=== PATIENT | male | born 1950 | race Caucasian/White ===

== ENCOUNTER 2021-08-23 13:22 | Outpatient (CLI) | payer MEDICARE, OTHER, SELFPAY ==
[2021-08-23 16:35] LABS: Hematocrit 38.5 % (42.0-52.0); Hemoglobin 12.7 g/dL (14.0-18.0)
[2021-08-23 16:53] LABS: Free T4 Free Thyroxine 0.66 ng/mL (0.78-2.19)
[2021-08-23 23:28] LABS: Anion Gap 12 mmol/L (8-16); Blood Urea Nitrogen 22 mg/dL (9-20); Calcium 9.7 mg/dL (8.4-10.2); Carbon Dioxide 22 mmol/L (22-30); Chloride 106 mmol/L (98-107); Estimated Glomerular Filt Rate > 60; Glucose 131 mg/dL (65-110); Potassium 4.5 mmol/L (3.4-5.0); Sodium 140 mmol/L (137-145)
[2021-08-23 23:39] LABS: LDL Cholesterol Direct 103 mg/dL
[2021-08-23 23:59] LABS: Prostate Specific Antigen 0.4 ng/mL (< OR = 4.0); Thyroid Stimulating Hormone 0.207 uIU/mL (0.465-4.680); Total Triiodothyronine (T3) 0.97 NG/ML (0.97-1.69)
[2021-08-28 07:49] LABS: Triiodothyronine T3 Free 2.6 pg/mL (2.3-4.2)
[2021-08-28 14:32] LABS: Thyroid Stimulating Immunoglob <89 % baseline (<140)
== END 2021-08-23 13:23 | disposition home or self-care (01) ==
PROVIDERS: Visit Provider Internal Medicine Endocrinology, Diabetes & Metabolism
DX: E11.9 Type 2 diabetes mellitus without complications (principal); E05.90 Thyrotoxicosis, unspecified without thyrotoxic crisis or storm; E04.2 Nontoxic multinodular goiter; Z12.5 Encounter for screening for malignant neoplasm of prostate
CPT/HCPCS: 36415; 80048; 83721; 84153; 84439; 84443; 84445; 84480; 84481; 85014; 85018; G0103